=== PATIENT | female | born 1980 | race Caucasian/White ===

== ENCOUNTER 2024-01-09 15:43 | Emergency (ER) | payer OTHER ==
[~2024-01-09] VITALS: Ht 160 cm; Wt 49.9 kg
[2024-01-09] MEDS ORDERED: ADDERAL (16:08)
[2024-01-09] MEDS ORDERED: MACROBID (16:08)
[2024-01-09] MEDS ORDERED: KETOROLAC TROMETHAMINE 15 MG INJ ONE (16:55)
[2024-01-09 16:56] LABS: BASOPHILS % (AUTO) 0.1 % (0.0-2.0); HEMATOCRIT 33.3 % (31.2-41.9); HEMOGLOBIN 10.8 g/dL (10.9-14.3); LYMPHOCYTES % (AUTO) 4.6 % (20.5-51.5); MEAN CORPUSCULAR HEMOGLOBIN 28.8 uug (24.7-32.8); MEAN CORPUSCULAR HGB CONC 33 g/dL (32.3-35.6); MEAN CORPUSCULAR VOLUME 88.6 fL (75.5-95.3); MONOCYTES % (AUTO) 4.6 % (0.0-11.0); NEUTROPHILS # (AUTO) 19.9 K/uL (1.8-8.9); NEUTROPHILS % (AUTO) 90.7 % (38.5-71.5); PLATELET COUNT (AUTO) 200 K/uL (179-408); RED BLOOD CELL COUNT(AUTO) 3.76 MIL/uL (3.63-4.92); WHITE BLOOD COUNT (AUTO) 21.9 K/uL (3.8-11.8)
[2024-01-09 16:58] LABS: *BILIRUBIN,URIN NEGATIVE (NEGATIVE); *BLOOD, URINE NEGATIVE (NEGATIVE); *CLARITY,URINE CLEAR (CLEAR); *COLOR,URINE YELLOW (YELLOW); *KETONES,URINE TRACE (NEGATIVE); *PROTEIN,URINE NEGATIVE (NEGATIVE); *UROBILINOGEN,URINE 0.2 E.U./dl (NORMAL); LEUKOCYTE ESTERASE ,URINE TRACE (NEGATIVE); NITRITE, URINE NEGATIVE (NEGATIVE); UGLUCOSE NEGATIVE (NEGATIVE)
[2024-01-09 17:01] LABS: DIFFERENTIAL COMMENT 1
[2024-01-09 17:04] LABS: CALCIUM 9.4 mg/dL (8.5-10.1); CARBON DIOXIDE 29 mmol/L (21-32); CHLORIDE 102 mmol/L (98-107); CREATININE 0.8 mg/dL (0.6-1.3); GLUCOSE 109 mg/dL (74-106); POTASSIUM 3.5 mmol/L (3.5-5.1); SODIUM SERUM 140 mmol/L (136-145); UREA NITROGEN, BLOOD 15 mg/dL (7-18)
[2024-01-09 17:06] LABS: BACTERIA,URINE NONE SEEN /HPF (NONE SEEN); RBC,URINE 0-3 /HPF (0-3); SQUAMOUS EPITHELIAL CELL,UR FEW /HPF (NONE SEEN); WBC,URINE 0-3 /HPF (0-3)
[2024-01-09] MEDS: KETOROLAC TROMETHAMINE 15 MG INJ IVP ONE (17:12)
[2024-01-09 17:15] LABS: PREGNANCY TEST SERUM QUAN 1 miul/L (0-6)
[2024-01-09 17:21] LABS: ALANINE AMINOTRANSFERASE 19 U/L (14-59); ALBUMIN 4.4 g/dL (3.4-5.0); ALKALINE PHOSPHATASE 63 U/L (50-136); ASPARTATE AMINOTRANSFERASE 11 U/L (15-37); BILIRUBIN,DIRECT 0.2 mg/dL (0.0-0.2); BILIRUBIN,TOTAL 0.6 mg/dL (0.2-1.0); LIPASE 29 U/L (16-77); TOTAL PROTEIN, SERUM 7.5 g/dL (6.4-8.2)
[2024-01-09] MEDS ORDERED: ONDANSETRON 4 MG/2 ML VIAL ONE (19:29)
[2024-01-09] MEDS ORDERED: OXYC-133 PO (19:30)
[2024-01-09] MEDS ORDERED: ONDA4TAB11 PO (19:30)
[2024-01-09] MEDS: ONDANSETRON 4 MG/2 ML VIAL IV ONE (19:34)
[2024-01-09] MEDS: OXYCODONE/APAP 5-325 MG TABLET PO ONE (19:39)
[2024-01-09] MEDS: diphenhydrAMINE 50 MG/1 ML VIAL IV ONE (19:39)
[2024-01-09 19:42] VITALS: BP 109/69; TEMP 98.6; O2SAT 100
== END 2024-01-09 19:42 | disposition home or self-care (01) ==
LOC: ER 15:45
DX: R10.31 Right lower quadrant pain (principal); R11.0 Nausea; R10.2 Pelvic and perineal pain; D72.829 Elevated white blood cell count, unspecified; Z79.899 Other long term (current) drug therapy; Z88.2 Allergy status to sulfonamides; Z91.040 Latex allergy status
CPT/HCPCS: 99285; 74176; 96374; 76856; 96375; 80076; 80048; 81001; 83690; 85025; 85730; 84484; 84702; 36415; J1885; J2405; A4606; A4663